=== PATIENT | male | born 1960 | race Caucasian/White ===

== ENCOUNTER 2017-03-09 17:06 | Emergency (ER) | payer BC, SELFPAY ==
[2017-03-09 17:08] VITALS: BP 164/100; PULSE 85; RESP 16; TEMP 36.7; O2SAT 98; BMI 29.5
--- NOTE | 2017-03-09 17:56 | ED.DEP ---
ED Disposition - Plan for ED Patient: Chief Complaint: Rash Instructions: ED Drug React Allergic Prescriptions: Colloidal Oatmeal [Aveeno Baby] 105 gm TP BID 7 Days bathpacket Referrals: Favio Rivera MD [Primary Care Provider] - Kelle Dorman [NON-STAFF] -
--- NOTE | 2017-03-09 17:56 | ED.DCSUM_ITS ---
- ER Visit Summary Date of Service: 03/09/17 Chief Complaint: [] Diffuse rash for almost 2 weeks pruritic History of Present Illness: The patient is a 56 M [] pruritic rash for almost 2 weeks to begin his lower legs and torso now to spread to involve almost all of his body. He was seen in urgent care center early on the course of this illness , he was started on anti-scabies lotion that he used it made the rash worse, then he was seen by his family doctor and told this was not scabies and he was started on prednisone but has not completely resolved the rash. He is on no new medications although he reports he now is taking his lisinopril as prescribed before he was taking it very intermittently, he has had no fever no cough no skin breakdown no petechia purpura no oral cavity lesions normal bowel bladder habits. No new soaps detergents or chemicals and no new medicines except as above Physical Examination: [] Is in no distress at rash is quite pruritic he is actively itching his HEENT exam is unremarkable oral cavity is unremarkable his neck is unremarkable lungs are clear heart tones normal abdomen soft nontender the skin there is a maculopapular rash involving primarily his upper body, upper extremities, anterior shins, there is no petechia purpura skin breakdown no vesicles this rash is very blanchy consistent with hives type lesions Test Results: [] Emergency Department Course and Treatment: [] I had a long conversation with the patient has had this for about 2 weeks she has no constitutional symptoms, the prednisone is helping but not making the rash go away at this time will be started on Kenalog 40 mg IM, Aveeno bath he is to be referred back to his primary care doctor and also dermatology and will return for change in symptoms further he has a concern that the lisinopril as he is taking more regularly could have caused this I have asked him to discuss options related to lisinopril continuing it, changing it, etc. with his family doctor Treatment Plan: [] Disposition: [] Home stable Impression: [] Pruritic rash for 2 weeks This note was generated with [employer] software. It may contain incorrect words, spelling, and punctuation that were not noted in review of the chart prior to signing ED Disposition - Plan for ED Patient: Chief Complaint: Rash Referrals: Favio Rivera MD [Primary Care Provider] -
[2017-03-09] MEDS: Triamcinolone Acetonide 40 MG/ML Vial IM (18:04)
[2017-03-09 18:29] VITALS: BP 121/89; PULSE 79; RESP 16
== END 2017-03-09 18:30 | disposition home or self-care (01) ==
LOC: ED 18:18
PROVIDERS: Emergency Provider Emergency Medicine; Family Provider Family Medicine; PCP Family Medicine
DX: L29.9 Pruritus, unspecified (principal); I10 Essential (primary) hypertension; Z79.899 Other long term (current) drug therapy
CPT/HCPCS: 96372; 99283

== ENCOUNTER → 2018-06-27 | Outpatient (CLI) | payer BC, SELFPAY ==
[2018-06-27 09:18] LABS: Amphetamine Urine VISTA NEGATIVE (<1000 ng/mL); Barbiturate Urine VISTA NEGATIVE (< 200 ng/mL); Benzodiazepine Urine VISTA NEGATIVE (< 200 ng/mL); Cocaine Urine VISTA NEGATIVE (< 300 ng/mL); Ecstacy Urine VISTA NEGATIVE (< 500 ng/mL); Methadone Urine VISTA NEGATIVE (< 300 ng/mL); PCP Urine VISTA NEGATIVE (< 25 ng/mL); THC Urine VISTA NEGATIVE (< 50 ng/mL); Vista UDS pH Range 5
== END | disposition home or self-care (01) ==
PROVIDERS: Family Provider Family Medicine; PCP Family Medicine; Referring Provider Family Medicine; Visit Provider Family Medicine
DX: Z02.1 Encounter for pre-employment examination (principal)
CPT/HCPCS: 80307